=== PATIENT | female | born 1990 | race Caucasian/White ===

== ENCOUNTER → 2018-09-19 11:42 | Outpatient (CLI) | payer OTHER, MEDICAID, SELFPAY ==
[2018-09-19 15:38] LABS: Rubella Antibody IgG 49.4 IU/mL (>15)
[2018-09-21 14:35] LABS: Hepatitis B Surf AB Imm QUANT 72 mIU/mL (> 9)
[2018-09-21 17:49] LABS: NIL 0.01 IU/mL; QuantiFERON TB NEGATIVE (Negative); TB1-NIL < 0.01 IU/mL; TB2-NIL < 0.01 IU/mL
== END ==
PROVIDERS: PCP Hospitalist; Visit Provider Hospitalist
DX: Z11.9 Encounter for screening for infectious and parasitic diseases, unspecified (principal)
CPT/HCPCS: 36415; 86317; 86480; 86735; 86762; 86765; 86787